=== PATIENT | male | born 1945 | race Caucasian/White ===

== ENCOUNTER → 2017-02-06 | Outpatient (CLI) | payer MEDICARE, OTHER ==
[~2017-02-06] MED LIST: CALCIUM CARBONATE PO; CORDARONE 200M200 MG PO; DIPHENHYDRAMINE25 M1 PO; DOCUSATE SODIU100 MG PO; FLOMAX 0.4 MG0.4 MG PO; LEVOTHYROXINE100 MCG PO; LISINOPRIL5 MG PO; MELATONIN5 M3 PO; NAPROXEN500 MG PO; NEURONTIN 300300 MG PO; PANTOPRAZOLE SO40 MG PO; PLAVIX75 MG PO; SPIRONOLACTONE25 MG PO; VITAMIN D31000 UNIT PO; [UNRECOGNIZED DRUG - OTHER] PO
[2017-02-06 09:19] LABS: HEMOGLOBIN 13.2 gm/dl (14.0-17.5); RED BLOOD COUNT 4.28 M/UL (4.20-5.50)
[2017-02-06 09:40] LABS: BUN/CREATININE RATIO 24 (0-10)
== END ==
LOC: LAB 08:29
PROVIDERS: Emergency Medicine
DX: D64.9 Anemia, unspecified (principal); E78.5 Hyperlipidemia, unspecified; I10 Essential (primary) hypertension; E11.9 Type 2 diabetes mellitus without complications; E55.9 Vitamin D deficiency, unspecified
CPT/HCPCS: 36415; 80053; 80061; 83036; 84443; 85025

== ENCOUNTER → 2017-03-15 | Outpatient (CLI) | payer MEDICARE, OTHER | LOC: CT 12:45 | DX: R10.817 Generalized abdominal tenderness (principal); R30.0 Dysuria; E27.8 Other specified disorders of adrenal gland; K59.00 Constipation, unspecified | CPT/HCPCS: J7050; Q9962 ==

== ENCOUNTER → 2021-01-06 | Outpatient (CLI) | payer MEDICARE ==
[~2021-01-06] MED LIST changes: +ELIQUIS2.5 MG PO
== END ==
LOC: HEART 5 09:27
DX: Z51.81 Encounter for therapeutic drug level monitoring (principal); Z79.899 Other long term (current) drug therapy; Z87.891 Personal history of nicotine dependence
CPT/HCPCS: 94010; 94729

== ENCOUNTER 2021-05-05 13:40 | Observation (INO) | payer MEDICARE ==
[~2021-05-05] VITALS: Ht 172.7 cm; Wt 83.9 kg
[~2021-05-05 13:40] MED LIST changes: -CORDARONE 200M200 MG PO; -DIPHENHYDRAMINE25 M1 PO; -ELIQUIS2.5 MG PO
[2021-05-05 15:57] LABS: HEMOGLOBIN 13.6 gm/dl (14.0-17.5); RED BLOOD COUNT 4.63 M/UL (4.20-5.50); WHITE BLOOD COUNT 10.3 K/UL (4.5-11.0)
[2021-05-05 16:26] LABS: BUN/CREATININE RATIO 19 (0-10)
[2021-05-06] MEDS ORDERED: DIPHENHYDRAMINE25 M1 PO (08:00)
[2021-05-06] MEDS ORDERED: NEURONTIN300 MG PO (08:02)
[2021-05-06] MEDS ORDERED: PACERONE200 MG PO (08:03)
[2021-05-06] MEDS ORDERED: ELIQUIS 5 MG TAB5 MG PO (09:06)
[2021-05-06] MEDS ORDERED: PRAVASTATIN SOD40 MG PO (12:56)
[2021-05-06] MEDS ORDERED: ZETIA10 MG PO (12:56)
[2021-05-06] MEDS ORDERED: XALATAN OP SOL2.5 ML OP (12:56)
[2021-05-06] MEDS ORDERED: CYMBALTA 30 MG30 MG PO (12:56)
[2021-05-06] MEDS ORDERED: PROSCAR 5 MG TAB5 MG PO (12:56)
[2021-05-06] MEDS ORDERED: MIRALAX17 GM PO (13:19)
[2021-05-06] MEDS ORDERED: ISOSORBIDE MONO30 MG PO (17:35)
== END 2021-05-06 18:00 | disposition home or self-care (01) ==
LOC: ER1 13:40 → CDU 18:54 → MED SURG 4 05-06 14:43
PROVIDERS: Physician Assistant; ADMIT Internal Medicine
DX: R07.89 Other chest pain (principal); I25.10 Atherosclerotic heart disease of native coronary artery without angina pectoris; I10 Essential (primary) hypertension; I25.2 Old myocardial infarction; K44.9 Diaphragmatic hernia without obstruction or gangrene; E11.9 Type 2 diabetes mellitus without complications; E89.0 Postprocedural hypothyroidism; E78.5 Hyperlipidemia, unspecified; I48.0 Paroxysmal atrial fibrillation; E55.9 Vitamin D deficiency, unspecified; R00.1 Bradycardia, unspecified; Z20.822 Contact with and (suspected) exposure to COVID-19; Z95.5 Presence of coronary angioplasty implant and graft; Z95.1 Presence of aortocoronary bypass graft; Z95.810 Presence of automatic (implantable) cardiac defibrillator; Z87.891 Personal history of nicotine dependence; Z79.01 Long term (current) use of anticoagulants; Z79.899 Other long term (current) drug therapy; Z86.73 Personal history of transient ischemic attack (TIA), and cerebral infarction without residual deficits; Z90.49 Acquired absence of other specified parts of digestive tract; Z79.82 Long term (current) use of aspirin
CPT/HCPCS: ECHO; 71045; 78452; 80053; 82550; 82553; 83036; 83874; 84439; 84443; 84484; 85025; 93005; 93017; 93306; 99285; A9502; G0378; J2785; U0002

== ENCOUNTER → 2021-08-05 | Outpatient (CLI) | payer MEDICARE ==
[~2021-08-05] MED LIST changes: +CALCIUM CARBON600 MG PO; +CYMBALTA 30 MG30 MG PO; +DIPHENHYDRAMINE25 M1 PO; +ELIQUIS 5 MG TAB5 MG PO; +ISOSORBIDE MONO30 MG PO; +MELATONIN10 MG PO; -MELATONIN5 M3 PO; +MIRALAX17 GM PO; +NEURONTIN300 MG PO; +NITROGLYCERIN0.4 MG SL; +PACERONE200 MG PO; +PRAVASTATIN SOD40 MG PO; +PROSCAR 5 MG TAB5 MG PO; +XALATAN OP SOL2.5 ML OU; +ZETIA10 MG PO
== END ==
LOC: EXRD 08:47
DX: M25.512 Pain in left shoulder (principal); R93.6 Abnormal findings on diagnostic imaging of limbs
CPT/HCPCS: 73030

== ENCOUNTER → 2021-12-23 | Outpatient (CLI) | payer MEDICARE | LOC: KOH-I 08:00 | DX: R10.31 Right lower quadrant pain (principal); R10.32 Left lower quadrant pain; D50.9 Iron deficiency anemia, unspecified; K92.1 Melena; K59.00 Constipation, unspecified | CPT/HCPCS: 74176 ==

== ENCOUNTER → 2022-01-17 | Day surgery (SDC) | payer MEDICARE ==
[~2022-01-17] MED LIST changes: +AMIODARONE HCL200 MG PO; +CLARITIN10 M2 PO; +COLACE100 MG PO; +FERATE240 MG PO; +FLOMAX0.4 MG PO; +LOPRESSOR 25 MG25 MG PO
== END | disposition home or self-care (01) ==
LOC: OR 06:50
PROVIDERS: Surgery
PROC: 0DBN8ZZ Excision of Sigmoid Colon, Via Natural or Artificial Opening Endoscopic (ICD-10-PCS; 2022-01-17)
PROC: 0DBP8ZZ Excision of Rectum, Via Natural or Artificial Opening Endoscopic (ICD-10-PCS; principal; 2022-01-17 08:45)
DX: D12.7 Benign neoplasm of rectosigmoid junction (principal); D12.8 Benign neoplasm of rectum; Z20.822 Contact with and (suspected) exposure to COVID-19; K64.4 Residual hemorrhoidal skin tags; K57.30 Diverticulosis of large intestine without perforation or abscess without bleeding
CPT/HCPCS: 82962; J2704

== ENCOUNTER → 2022-02-16 | Outpatient (CLI) | payer MEDICARE | LOC: HEART 5 15:19 | DX: Z51.81 Encounter for therapeutic drug level monitoring (principal); Z79.899 Other long term (current) drug therapy | CPT/HCPCS: 94060; 94729 ==